=== PATIENT | male | born 1965 | race Caucasian/White ===

== ENCOUNTER 2022-12-05 02:23 | Day surgery (SDC) | payer OTHER, SELFPAY ==
[2022-11-20 13:55] VITALS: BMI 27.1
[2022-12-05 06:22] VITALS: BP 108/66; PULSE 67; RESP 20; TEMP 36.2; O2SAT 99
[2022-12-05] MEDS: LACTATED RINGERS 1,000 ML 150 ML IV CONT (06:34)
[2022-12-05 06:35] LABS: Glucose Point of Care 89 mg/dl (65-105)
--- NOTE | 2022-12-05 06:48 | WPDANESEPPF ---
Anes - Initial Pre Proc Eval Procedure: Operation Date: 12/05/22 07:30 Proposed Procedures p Screening Colonoscopy - Zeke Mojica MD Date/Time: 12/05/22 06:48 Surgeon: Zeke Mojica MD Pre Op Diagnosis: Neoplasm Screening Patient Data Age: 57 Gender: M Height: 1.83 m Weight: 89.4 kg Last Vital Signs Temp 36.2 C L 12/05/22 06:22 Pulse 67 12/05/22 06:22 Resp 20 12/05/22 06:22 BP 108/66 12/05/22 06:22 Pulse Ox 99 12/05/22 06:22 O2 Del Method Room Air 12/05/22 06:22 Allergies Allergy/AdvReac Type Severity Reaction Status Date / Time amlodipine AdvReac Headache Verified 12/05/22 06:18 Home Medications Medication Instructions Recorded Confirmed Type tadalafil 20 mg tablet (Cialis) 20 mg PO DAILY PRN sexual activity 06/27/22 Rx #5 tabs rosuvastatin 20 mg tablet 20 mg PO DAILY #90 tabs 08/07/22 11/20/22 Rx sodium,potassium,mag sulfates 17.5 See Rx Instructions PO .COMPLEX 10/04/22 Rx gram-3.13 gram-1.6 gram oral soln #354 mL (Suprep Bowel Prep Kit) losartan 25 mg tablet 25 mg PO DAILY 11/20/22 11/20/22 History metformin 500 mg tablet 500 mg PO DAILY 11/20/22 11/20/22 History metoprolol succinate 25 mg 12.5 mg PO DAILY PRN Hypertension 11/20/22 11/20/22 History tablet,extended release 24 hr valacyclovir 1 gram tablet 1,000 mg PO DAILY 11/20/22 11/20/22 History (Valtrex) Laboratory Tests 12/05/22 06:31 POC Capillary Glucose 89 mg/dl mg/dl (65-105) Patient hx anesthesia problems: none Family hx anesthesia problems: none Results Review: All pre-operative results and documents have been reviewed as part of the pre-operative evaluation. [facility] Past Medical History Medical History Acute otitis externa Arthritis Frontal sinus pain Headache Hyperlipidemia Hypertension Otalgia of both ears Pain of left calf Surgical History Surgical History (Updated 12/05/22 @ 06:51 by Miguel Angel Lee MD) H/O arthroscopic knee surgery Family History Family History Father Lung cancer Brain cancer Social History Social History Smoking status: Never smoker Alcohol intake: never Substance use: never Spiritual care concerns: No Anes - Eval Final PreProcedure Day of Procedure 12/05/22 06:48 Patient weight: overweight Heart: regular rate and rhythm Lungs: clear to auscultation Airway: Mallampati scale class II Neurological: alert and oriented Last oral intake: >/= 8 hours ASA classification: II Emergent: no Anesthetic plan: proceed Anesthesia type and monitoring: general GIVS and standard monitoring Results Review: All pre-operative results and documents have been reviewed as part of the pre-operative evaluation. Informed Consent: The patient's anesthetic plan and its attendant risks and benefits were discussed with the patient/family/POA. Questions were solicited and answers provided to the satisfaction of the patient/family/POA.
--- NOTE | 2022-12-05 07:26 | P.HP_ITS ---
History of Present Illness History of Present Illness Consent: Risks, benefits, and alternatives have been discussed and questions answered. Patient agrees to proceed with procedure. Chief complaint: Neoplasm Screening Narrative: Joe Ventura is a 57 year old male Presents for screening colonoscopy. Patient's current weight appetite bowel movements are normal. Patient denies abdominal pain. He has had no bleeding. Family history is noncontributory. Review of Systems Review of Systems: Review of systems noncontributory. [facility] Past Medical History Medical History (Updated 12/05/22 @ 07:28 by Zeke Mojica MD) Acute otitis externa Arthritis Frontal sinus pain Headache Hyperlipidemia Hypertension Otalgia of both ears Pain of left calf Surgical History Surgical History (Updated 12/05/22 @ 06:51 by Miguel Angel Lee MD) H/O arthroscopic knee surgery Family History Family History Father Lung cancer Brain cancer Social History Social History Smoking status: Never smoker Alcohol intake: never Substance use: never Spiritual care concerns: No Meds Home Medications and Allergies Home Medications Medication Instructions Recorded Confirmed Type tadalafil 20 mg tablet (Cialis) 20 mg PO DAILY PRN sexual activity 06/27/22 Rx #5 tabs rosuvastatin 20 mg tablet 20 mg PO DAILY #90 tabs 08/07/22 11/20/22 Rx sodium,potassium,mag sulfates 17.5 See Rx Instructions PO .COMPLEX 10/04/22 Rx gram-3.13 gram-1.6 gram oral soln #354 mL (Suprep Bowel Prep Kit) losartan 25 mg tablet 25 mg PO DAILY 11/20/22 11/20/22 History metformin 500 mg tablet 500 mg PO DAILY 11/20/22 11/20/22 History metoprolol succinate 25 mg 12.5 mg PO DAILY PRN Hypertension 11/20/22 11/20/22 History tablet,extended release 24 hr valacyclovir 1 gram tablet 1,000 mg PO DAILY 11/20/22 11/20/22 History (Valtrex) Allergies Allergy/AdvReac Type Severity Reaction Status Date / Time amlodipine AdvReac Headache Verified 12/05/22 06:18 Vital Signs Vital Signs - 24 hr 12/05/22 06:22 Temperature 97.2 F L Pulse Rate 67 Respiratory Rate 20 Blood Pressure 108/66 Pulse Oximetry 99 Oxygen Delivery Room Air Exam Narrative: Physical exam reveals patient to be alert. Vital signs stable. HEENT exam is unremarkable. Patient is anicteric. Lungs are clear to auscultation and percussion. Heart is without murmur or extra sounds. Abdomen bowel sounds present soft nontender with no organomegaly. Digital external rectal exam is normal. Assessment and Plan Assessment and plan (1) Encounter for screening colonoscopy: Code(s): Z12.11 - Encounter for screening for malignant neoplasm of colon Status: Acute Assessment and Plan: Patient presents for screening colonoscopy. He appears to be at average risk for colon polyps. Further recommendations may be given after endoscopy.
[2022-12-05 07:49] VITALS: BP 99/65; PULSE 66; RESP 22; O2SAT 100
[2022-12-05 07:59] VITALS: BP 115/72; PULSE 68; RESP 14; O2SAT 100
[2022-12-05 08:09] VITALS: BP 105/72; PULSE 60; RESP 22; O2SAT 99
== END 2022-12-05 08:12 | disposition home or self-care (01) ==
PROVIDERS: PCP Family Medicine; Visit Provider Internal Medicine Gastroenterology
PROC: 0DJD8ZZ Inspection of Lower Intestinal Tract, Via Natural or Artificial Opening Endoscopic (ICD-10-PCS; CPT 45378; principal; 2022-12-05 07:30)
DX: Z12.11 Encounter for screening for malignant neoplasm of colon (principal); D12.2 Benign neoplasm of ascending colon; D12.4 Benign neoplasm of descending colon; D12.8 Benign neoplasm of rectum; I10 Essential (primary) hypertension; E78.5 Hyperlipidemia, unspecified; Z79.84 Long term (current) use of oral hypoglycemic drugs
CPT/HCPCS: 45385; 82948; 88305; J2704; J7120